=== PATIENT | male | born 1980 | race Caucasian/White ===

== ENCOUNTER → 2018-11-01 | Outpatient (CLI) | payer OTHER ==
[2018-11-01 09:36] LABS: Basophils # (A) 0.1 k/uL (0-0.2); Basophils % (A) 1 %; Eosinophils # (A) 0.2 k/uL (0-0.7); Eosinophils % (A) 2 %; HCT 47.9 % (39.0-53.0); HGB 15.6 gm/dL (13.0-17.5); Lymphocytes # (A) 2.6 k/uL (1.0-4.8); Lymphocytes % (A) 30 %; MCH 28.5 pg (25.0-35.0); MCHC 32.6 g/dL (31.0-37.0); MCV 87.3 fL (80.0-100.0); Mean Platelet Volume 6.4; Monocytes # (A) 0.8 k/uL (0-1.0); Monocytes % (A) 9 %; Neutrophils # (A) 4.7 k/uL (1.3-7.7); Neutrophils % (A) 55 %; Platelet Count 245 k/uL (150-450); RBC 5.48 m/uL (4.30-5.90); RDW 13.7 % (11.5-15.5); WBC 8.6 k/uL (3.8-10.6)
[2018-11-01 09:41] LABS: INR 0.9 (<1.2); Prothrombin Time 10.2 sec (9.0-12.0)
--- NOTE | 2018-11-01 10:12 | XR ---
EXAMINATION TYPE: XR chest 2V DATE OF EXAM: 11/01/2018 HISTORY: Z01.818 PRE OP. REFERENCE: NONE. FINDINGS: The lungs are clear. Pleural space are clear. The heart is not enlarged. IMPRESSION: NO ACTIVE INTRATHORACIC DISEASE.
[2018-11-01 10:22] LABS: Anion Gap 8 mmol/L; Blood Urea Nitrogen 19 mg/dL (9-20); Calcium 9.6 mg/dL (8.4-10.2); Carbon Dioxide 25 mmol/L (22-30); Chloride 109 mmol/L (98-107); Glucose 114 mg/dL (74-99); Potassium 4.6 mmol/L (3.5-5.1); Sodium 142 mmol/L (137-145)
== END ==
LOC: LABPAT 08:51
PROVIDERS: ATTEND Orthopaedic Surgery Orthopaedic Surgery of the Spine
DX: Z01.812 Encounter for preprocedural laboratory examination (principal); M50.222 Other cervical disc displacement at C5-C6 level
CPT/HCPCS: 36415; 71046; 80048; 85025; 85610

== ENCOUNTER 2018-11-12 08:58 | Day surgery (SDC) | payer OTHER ==
[2018-11-06 15:40] VITALS: BMI 34.0
[~2018-11-12 08:58] MED LIST: SODIUM CHLORIDE 0.9% 1,000 ML IRRIGATION SCH
[2018-11-12 09:23] VITALS: RESP 16
[2018-11-12] MEDS ORDERED: LIDOCAINE 1% 20 ML VIAL (10MG/ML) FOR IV START INTRADERMA ONE (09:37)
[2018-11-12] MEDS ORDERED: BACITRACIN 50,000 UNIT, POLYMYXIN B 500,000 UNIT in SODIUM CHLORIDE 0.9% IRRIGATIO 1,00... IRRIGATION ONE (10:19)
[2018-11-12] MEDS ORDERED: KETOROLAC 30 MG/ML 1 ML VIAL ONE (10:25)
[2018-11-12] MEDS ORDERED: ROCURONIUM BROMIDE 10 MG/ML 10 ML VIAL IV ONE (10:25)
[2018-11-12] MEDS ORDERED: SUCCINYLCHOLINE CHLORIDE 100 MG/5 ML SYR IV ONE (10:25)
[2018-11-12] MEDS ORDERED: fentaNYL (PF) 50 MCG/ML 2 ML AMP ONE (10:25)
[2018-11-12] MEDS ORDERED: MIDAZOLAM 2 MG/2 ML VIAL ONE (10:25)
[2018-11-12] MEDS ORDERED: HYDROmorphone (PF) 1 MG/ML ONE (10:25)
[2018-11-12] MEDS ORDERED: PROPOFOL 10 MG/ML 20 ML VIAL IV ONE (10:25)
[2018-11-12] MEDS ORDERED: LIDOCAINE 0.5%-EPI 1:200,000 50 ML VIAL SQ ONE (10:55)
[2018-11-12] MEDS ORDERED: GELATIN SPONGE,ABSORB (LARGE) 1 EACH SPONGE MISCELLANE ONE (11:02)
[2018-11-12] MEDS ORDERED: THROMBIN (BOVINE) 5,000 UNIT VIAL TOPICAL ONE (11:02)
--- NOTE | 2018-11-12 11:56 | XR ---
Fluoroscopy INDICATION: Pain, cervical decompression FINDINGS: Fluoroscopy time: 2 seconds. Images obtained: 1. IMPRESSIONS: 1. Documentation of fluoroscopy.
[2018-11-12] MEDS ORDERED: LACTATED RINGERS 1,000 ML IV ONE (12:04)
[2018-11-12] MEDS ORDERED: HYDROcodone/APAP 5-325MG 1 EACH TAB PO PRN (12:31)
[2018-11-12] MEDS ORDERED: HYDROmorphone 1 MG/ML 1 ML SYRINGE IVP PRN (12:31)
[2018-11-12] MEDS ORDERED: BENZOCAINE/MENTHOL LOZENG 1 EACH LOZENGE MUCOUS MEM PRN (12:31)
[2018-11-12] MEDS ORDERED: ONDANSETRON 4 MG/2 ML VIAL IVP PRN (12:31)
[2018-11-12] MEDS ORDERED: HYDROmorphone 0.5 MG/0.5 ML SYRINGE IVP PRN ×2 (12:31→14:59)
[2018-11-12] MEDS ORDERED: ACETAMINOPHEN TAB 325 MG TAB PO PRN (12:33)
--- NOTE | 2018-11-12 12:41 | P.OP ---
Date of Procedure: 11/12/18 Preoperative Diagnosis: Herniated nucleus pulposis C5 6 C6 7 with extruded fragments, right upper extremity radiculopathy, right upper extremity weakness, neck pain Postoperative Diagnosis: Same Anesthesia: GETA Pathology: none sent Condition: stable Disposition: PACU Description of Procedure: BRIEF OPERATIVE NOTE Preoperative Diagnosis:Herniated nucleus pulposis C5 6 C6 7 with extruded fragments, right upper extremity radiculopathy, right upper extremity weakness, neck pain Postoperative Diagnosis: Same Procedure: Anterior cervical decompression with discectomy and fusion C5 6 C6 7 Placement of interbody graft C5 6 C6 7 Application of anterior cervical plate C5 6 7 Surgeon: Dr. Villafuerte Umbrella Supervisor: Baltazar Preston is present throughout the entire the case persistence during positioning, dissection, exposure, visualization, and all crucial elements of the case as well as closure. Anesthesia: General anesthesia Estimated blood loss: Approximately 100 mL Complications: None apparent Components implanted: K2M [place] anterior cervical plate system with a 42 mm plate and 6 screws and Vikos interbody allograft bone graft as well as 1 mL of DBX bone putty Disposition: To recovery room in good stable condition. OPERATIVE INDICATIONS The patient has had severe issues in their neck and upper extremities particularly on the right ring he was having weakness and severe pain. He was having significant debility due to the pain on the right side and has having discontinue with activities as well as work. He is found have a disc herniation at C5 6 and C6 7 with large extruded disc fragments which correlated well with his symptoms at his extremities and neck. He is not having any benefit despite aggressive conservative care. The patient has been through conservative treatment. We discussed various treatment options including surgery, and the patient wishes to proceed with surgery We discussed the risk, patient's alternatives and benefits of surgery including but not limited to, risk of bleeding risk of infection, risk of need for further surgery, risk of decreased, loss of motion, muscle function, malunion nonunion, hardware failure , nerve damage, paralysis, heart attack, and . OPERATIVE SUMMARY After discussing all the risks, patient alternatives and benefits at length, the patient elected to proceed with surgical intervention, signed informed consent, and presented for their procedure. The patient was seen and examined in the preoperative holding area and the surgical site was marked. The patient was given antibiotics and brought to the operating room. The patient was positioned on the operating room table in a supine position being careful to pad any bony prominences and pressure points. The patient was sedated and intubated by anesthesia in standard fashion. Once the airway and C- spine were stabilized the patient's arms were padded and tucked at her side, with her shoulders gently taped. The head was placed in a donut pad with the neck in good neutral alignment and position. We were careful to maintain the patient's cervical spine and good neutral alignment and position throughout. The patient was prepped and draped in a normal standard fashion. An appropriate timeout and keystone protocol performed. We were able to proceed with the surgery. The local wound area was infiltrated with local anesthetic. An incision was made transversely approximately 2-1/2 cm over the appropriate levels at C6. Dissection was taken down subcutaneously to the level of the platysma which was split in line with its fibers. Dissection was taken with a carotid approach, with the trachea and esophagus medial and the carotid sheath laterally. We dissected down to the anterior surface of the vertebral bodies at C5 6 and 7. Intraoperative x-ray fluoroscopy was taken which showed a marker at the appropriate level at C5 6. With the appropriate level positively confirmed, we were able to proceed with discectomy at the appropriate levels, starting at C6 7 and then working to C5 6. All of the operative levels were exposed appropriately. The patient had all their twitches back, and there was no evidence of recurrent laryngeal issue. The wound was copiously irrigated and suctioned dry as had been done periodically throughout the case. At the appropriate level/levels, I established an annulotomy with an 11 blade scalpel. A discectomy was performed with a combination of pituitary rongeurs, curettes , a high-speed bur, and Kerrison rongeurs. At both levels there was extruded disc fragment. At C6 7 there is a very large paracentral/foraminal extruded disc fragment which was able to be removed. All the disc herniations were removed. The posterior longitudinal ligament was taken down as were any posterior osteophytes. This gave good central and bilateral foraminal decompression. There is no evidence of any dural tear or leak. The endplates were prepared with a high-speed bur. With the endplates in good parallel position, I was able to size for the appropriate size interbody graft. The wound was irrigated and suctioned dry the graft was prepared and malleted into position. It had good alignment and position with the anterior surface flush with the anterior surface of the vertebral bodies. This was done similarly the appropriate levels first at C67 and at C5 6. With the grafts intact, I was able to measure and contour and appropriate sized plate. The plate was positioned at the midline over the appropriate levels at C5 6 and 7. Screw holes were established with a hand drill and drill guide. Screws were placed in good alignment and position with excellent bony purchase. They were seated under the locking device. The construct was checked and found to be stable. Intraoperative x-ray was taken which showed good alignment and position of the implants at the appropriate levels. There was no evidence of any dural tear or leak. Good hemostasis was maintained. The wound was copiously irrigated and suctioned dry as had been done periodically throughout the case. The platysma was closed with absorbable suture. The subcutaneous tissue was closed. The subcuticular tissue was closed with absorbable suture. The wound was cleaned and dried and dressed appropriately. A soft cervical collar was placed appropriately. The patient was woken up by anesthesia, extubated, transferred back gently to their hospital bed and brought to the recovery room in good stable condition. The patient will be admitted to the hospital for appropriate postoperative care , medical management and monitoring. We will continue to follow them closely about the postoperative course.
[2018-11-12] MEDS ORDERED: SODIUM CHLORIDE 0.9% 1,000 ML IV SCH (12:45)
--- NOTE | 2018-11-12 14:32 | XR ---
Fluoroscopy INDICATION: Pain, post cervical fusion FINDINGS: Fluoroscopy time: 2 seconds. Images obtained: 1. IMPRESSIONS: 1. Documentation of fluoroscopy.
[2018-11-12] MEDS ORDERED: LACTATED RINGERS 1,000 ML IV SCH (14:59)
[2018-11-12] MEDS ORDERED: LIDOCAINE 1% 20 ML VIAL (10MG/ML) FOR IV START INTRADERMA PRN (14:59)
[2018-11-12] MEDS ORDERED: ONDANSETRON 4 MG/2 ML VIAL IVP ONE (14:59)
[2018-11-12] MEDS ORDERED: ceFAZolin 3 GM in SODIUM CHLORIDE 0.9% 100 ML IVPB SCH (16:00)
[2018-11-12 16:16] VITALS: BP 125/81; TEMP 97.8
[2018-11-12 16:49] VITALS: PULSE 88
== END 2018-11-12 17:20 | disposition home or self-care (01) ==
LOC: OR 08:58 → 4SSUR 12:32 → OR 17:20
PROVIDERS: ATTEND Orthopaedic Surgery Orthopaedic Surgery of the Spine
DX: M50.122 Cervical disc disorder at C5-C6 level with radiculopathy (principal); M48.02 Spinal stenosis, cervical region; F17.200 Nicotine dependence, unspecified, uncomplicated; Z88.3 Allergy status to other anti-infective agents; Z79.1 Long term (current) use of non-steroidal anti-inflammatories (NSAID); Z79.52 Long term (current) use of systemic steroids
CPT/HCPCS: 72020; 22551; 22552; 22845; 20931; 20930; C1713 ×2; C1762; J2250; J0690; J3010; J1885; J1170; J0330; J2704; 86850; 86900; 86901